=== PATIENT | female | born 1935 | race Caucasian/White ===

== ENCOUNTER → 2018-04-19 | Outpatient (CLI) | payer OTHER | LOC: CAT 12:14 | DX: Z13.6 Encounter for screening for cardiovascular disorders (principal); E78.00 Pure hypercholesterolemia, unspecified; I25.10 Atherosclerotic heart disease of native coronary artery without angina pectoris ==

== ENCOUNTER → 2018-05-15 | Outpatient (CLI) | payer OTHER, MEDICARE | LOC: MRI 14:08 | DX: M51.16 Intervertebral disc disorders with radiculopathy, lumbar region (principal); M48.061 Spinal stenosis, lumbar region without neurogenic claudication; M47.26 Other spondylosis with radiculopathy, lumbar region; N28.1 Cyst of kidney, acquired; I10 Essential (primary) hypertension ==

== ENCOUNTER → 2018-08-21 | Outpatient (CLI) | payer OTHER, MEDICARE ==
[~2018-08-21] VITALS: Ht 160 cm; Wt 68.0 kg
[~2018-08-21] MED LIST: A REDS 2 PO; ASPIR 8181 MG PO; BENICAR40 MG PO; CO Q-10100 MG PO; D3 DOTS2000 UNIT PO; INDAPAMIDE2.5 MG PO; LIPITOR 20 MG T20 M1 PO; MIRAPEX 0.250.25 M1 PO; MIRAPEX0.5 MG PO; TOPROL XL100 MG PO
[2018-08-21 11:02] VITALS: BP 149/71
--- NOTE | 2018-08-21 11:15 | NUR ---
Pain Clinic Assessment: 1. History of Osteoarthritis: History of Rheumatoid Arthritis: 2. Height: 5 ft. 3 in. 160.0 cm. Weight: 150.0 lb. oz. 68.040 kg. Patient's BMI: 26.6 3. Vital Signs: BP: 149/71 Pulse: 94 Resp: 16 Temp: 02 Sat: 99 ECG Mon: 4. Pain Intensity: 5 5. Fall Risk: Dizziness: N Needs help standing or walking: N Fallen in the last 3 months: N Fall risk comments: 6. Patient on Blood Thinner: None 7. History of Hypertension: Y 8. Opioid Therapy greater than 6 weeks: N Opiate Contract Signed: 9. Risk Assessment Tool Provided: LOW 10. Functional Assessment Tool: 11. Recreational Drug Use: Never Drug Type: Tobacco Use: Never Smoker Tobacco Type: Amount or Packs/day: How Many Years: Alcohol Use: No Frequency: Quant:
--- NOTE | 2018-08-28 08:18 | HPC ---
[facility] [address] [place] [address] PAIN MANAGEMENT CONSULTATION Name: JULIENNE MARINO Room #: REG [facility].#: [id number] Admission: 08/21/18 ������������������ Attend Phys: Kal Sharma DO Discharge: ������������������ Date of : 35 Report #: [id number] THIS REPORT FOR: //name// CC: DUSTIN Sharma DATE OF SERVICE: 08/21/2018 CHIEF COMPLAINT: Low back pain. HISTORY OF PRESENT ILLNESS: As you know, the patient is a very pleasant 83-year-old female who began experiencing low back pain somewhere in February 2017. The patient denies specific injury or trauma that may have led to symptom occurrence. She indicates that she has "just been dealing with it" over the past couple of months. She indicates mbmi-cte-dlikytu medications have been ineffective at controlling pain for any long-term period. She sought evaluation through her PCP who trialed conservative treatments with medical management. Unfortunately, her symptoms did not improve and she was subsequently sent for imaging of the lumbar spine. Once the imaging was completed, the patient was referred to our clinic to discuss options for treatment for what appears to be facet arthropathy pain. The patient indicates today pain is continuous, steady and constant, describes the pain as aching and gnawing. She places current pain score at 5/10, daily average of 5/10, worst pain has been as 5/10. She states that pain is exacerbated with standing for any length of time, improves with sitting or lying down. She has been referred to our service to discuss treatment options for facet arthropathy of the lumbar region. PAST MEDICAL HISTORY: 1. Essential hypertension. 2. Irritable bowel syndrome. 3. Dyslipidemia. 4. History of nephrolithiasis. 5. Restless legs syndrome. 6. Venous insufficiency. 7. Bilateral carotid stenosis. 8. Osteopenia. 9. Macular degeneration. 10. Osteoarthritis. 11. Peripheral neuropathy. PAST SURGICAL HISTORY: Lumbar laminectomy in 2014. SOCIAL HISTORY: The patient denies tobacco, alcohol, IV or illicit drug use. [facility] [address] [place] [address] PAIN MANAGEMENT CONSULTATION Name: JULIENNE MARINO Inna Room #: [facility]#: [id number] Admission: 08/21/18 ������������������ Attend Phys: Kal Sharma DO Discharge: ������������������ Date of : 35 Report #: [id number] She retired in 2000, not receiving workmen's compensation nor is she trying to obtain disability benefits. Unaccompanied at today's visit. She is not in litigation in regards to pain. REVIEW OF SYSTEMS: Positive for hearing loss, shortness of breath walking or lying flat, low back pain. All other review of systems negative per 12-point review of systems other than those listed in the history of present illness. Pain impact score 19/70 indicating mild interference of daily activities secondary to pain. ALLERGIES: No known drug allergies. CURRENT MEDICATIONS: Metoprolol 100 mg once a day, olmesartan 40 mg once a day, indapamide 2.5 mg once a day, atorvastatin 20 mg per day, Mirapex 0.5 mg once a day, Coenzyme Q 100 mg once a day, cholecalciferol 2000 units once a day, aspirin 81 mg per day. IMAGING: MRI lumbar spine obtained 05/15/2018 shows L1-L2 generalized disk bulge, moderate posterior facet degenerative changes, no significant central canal stenosis or neural foraminal stenosis. L2-L3, generalized disk bulge with moderate to severe hypertrophic facet degenerative changes and ligamentum flavum hypertrophy, no central canal stenosis, no significant neural foraminal stenosis. L3-L4, generalized disk bulge with severe hypertrophic posterior degenerative changes and ligamentum flavum hypertrophy. Thecal sac is narrowed to 8 mm consistent with moderate central canal stenosis, mild bilateral neural foraminal stenosis. L4-L5, generalized disk bulge, severe hypertrophic facet degenerative changes, thecal sac measuring 8 mm consistent with moderate central canal stenosis, mild left and negative right neural foraminal stenosis. L5-S1, broad-based central and right paracentral disk protrusion slightly larger compared to prior exam abutting the anterior medial aspect of the descending right L5 nerve root, mild central canal stenosis, moderate to severe left neural foraminal narrowing. There is a cyst noted on the posterior cortex of the left kidney. PQRS: The patient has osteoarthritic changes of the lumbar spine. No rheumatoid arthritis, placing pain score at 5/10. She is not a fall risk, has not had a fall in the last 3 months. She is not on blood thinners, but is treated for hypertension. She is not on chronic opioids, but does have a low opioid addiction potential based on our assessment tool. Pain impact score 19/70 indicating mild interference of daily activities secondary to pain. PHYSICAL EXAMINATION: VITAL SIGNS: Blood pressure 149/71, pulse 94, respiratory rate 16 and unlabored. The patient is 99% on room air. Height 5 feet 3 inches tall, weight 150 pounds, BMI calculated 26.6. [facility] [address] [place] [address] PAIN MANAGEMENT CONSULTATION Name: JULIENNE MARINO Room #: REG [facility]#: [id number] Admission: 08/21/18 ������������������ Attend Phys: Kal Sharma DO Discharge: ������������������ Date of : 35 Report #: [id number] GENERAL: Well-developed, well-nourished, well-hydrated 83-year-old female, appears her stated age, placing current pain score at 5/10. HEENT: Normocephalic, atraumatic. Pupils equal, round, reactive to light. Extraocular muscles are intact. Sclerae nonicteric without injection. NEUROLOGIC: Cranial nerves 2-12 grossly intact. Speech is fluent. LUNGS: Clear. No wheeze, rhonchi or rales. CARDIOVASCULAR: Regular. No appreciable gallop, no rub. ABDOMEN: Soft, nontender. EXTREMITIES: Show no clubbing, no cyanosis and no edema. MUSCULOSKELETAL: Lower extremity strength appears symmetrical 5/5, intact to light touch from L1 through S2 dermatomes. Seated straight leg raising negative. Supine straight leg raising negative. Marissa's test negative. Modified Gaenslen's positive for axial low back pain. Ankle clonus negative. Babinski is negative. Lumbar provocation testing including extension, rotation, lateral flexion all intensify axial back pain. Forward flexion of lumbar spine tends to improve pain slightly. ASSESSMENT: 1. 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 2. Facet arthropathy of the lumbar spine. 3. Chronic intractable pain. PLAN: 1. Based on today's physical exam and history the patient has provided, the description the patient uses in regards to pain as well as location of symptoms and the lack of any radicular component to her pain today, the likely source of the patient's pain is facet arthropathy. We discussed with the patient the findings of her MRI. This took over 21 minutes of time. Once we completed the discussion of the findings and how they may correlate the patient's symptoms, the patient and I discussed treatment options, the following was discussed with the patient today on treatment for facet arthropathy pain. We discussed physical therapy, stretching exercises and core strengthening as the gold standard for treatment for facet arthropathy pain. We discussed medication management adding a nonsteroidal anti-inflammatory if the patient can take the medication. We also discussed possibility of adding medication like Cymbalta, which has been indicated beneficial for axial back pain. We discussed facet injections of the lumbar spine to address axial back symptoms. We also discussed medial branch nerve blocks and radiofrequency lesioning as treatment options. We also discussed the final treatment option, which would be surgical. After reviewing the risks and benefits of all the proposed treatment options, the patient wished to remain conservative and begin with physical therapy. 2. The patient was sent for physical therapy twice a week for 6 weeks. We have requested that modalities such as ultrasound, traction and TENS be utilized as necessary. We are requesting strength exercise programs and range of motion exercise programs to assist in pain control. [place] [address] PAIN MANAGEMENT CONSULTATION Name: JULIENNE MARINO Room #: REG [facility]#: [id number] Admission: 08/21/18 ������������������ Attend Phys: Kal Sharma DO Discharge: ������������������ Date of : 35 Report #: [id number] physical therapy as quickly as possible. We will watch for the recommendations from the physical therapist and help address any residual symptoms or requirements of the paperwork with her physical therapist. 3. We made no changes in the patient's medication management. She wishes to remain on current therapy. We did discuss the possibility of adding an anti-inflammatory medication, but at this point, she wishes to delay. 4. We will see the patient back in followup visit once she has completed her physical therapy approximately 6 weeks from now. At that time, we will review the efficacy of this treatment course. I have advised the patient that she is not to discontinue the physical therapy, stretching exercises and techniques. She is to take the information from the formalized program and transition to a home program to continue this activity. I do feel the patient will see good benefit with physical therapy and to continue this will maintain that efficacy. 5. I thank Dr. Jackson for the referral of the patient to our clinic. We will keep you apprised of her response to treatment as we address facet arthropathy pain. Again, we wish to thank you for the opportunity to see the patient in consultation. ��������������������������������������������� <ELECTRONICALLY SIGNED> ���������������������������������������� By: Kal Sharma DO ��������������������������������������������� 08/28/18 0818 1623 0054 Kal Sharma DO /nt
== END ==
LOC: PAIN 10:12
DX: M47.817 Spondylosis without myelopathy or radiculopathy, lumbosacral region (principal); M12.88 Other specific arthropathies, not elsewhere classified, other specified site; G89.29 Other chronic pain; I10 Essential (primary) hypertension; K58.9 Irritable bowel syndrome, unspecified; E78.5 Hyperlipidemia, unspecified; G25.81 Restless legs syndrome; M85.88 Other specified disorders of bone density and structure, other site

== ENCOUNTER → 2018-09-11 | Outpatient (CLI) | payer OTHER, MEDICARE ==
[~2018-09-11] VITALS: Ht 160 cm; Wt 70.4 kg
[2018-09-11 09:27] VITALS: BP 112/58
--- NOTE | 2018-09-11 09:31 | NUR ---
Pain Clinic Assessment: 1. History of Osteoarthritis: History of Rheumatoid Arthritis: 2. Height: 5 ft. 3 in. 160.0 cm. Weight: 155.2 lb. oz. 70.398 kg. Patient's BMI: 27.5 3. Vital Signs: BP: 112/58 Pulse: 79 Resp: 16 Temp: 02 Sat: 99 ECG Mon: 4. Pain Intensity: 3-4 5. Fall Risk: Dizziness: N Needs help standing or walking: N Fallen in the last 3 months: N Fall risk comments: 6. Patient on Blood Thinner: None 7. History of Hypertension: Y 8. Opioid Therapy greater than 6 weeks: N Opiate Contract Signed: 9. Risk Assessment Tool Provided: LOW 10. Functional Assessment Tool: 11. Recreational Drug Use: Never Drug Type: Tobacco Use: Never Smoker Tobacco Type: Amount or Packs/day: How Many Years: Alcohol Use: No Frequency: Quant:
--- NOTE | 2018-09-17 15:47 | HPC ---
[facility] [place] [address] PAIN MANAGEMENT CONSULTATION Name: JULIENNE MARINO Room #: REG [facility].#: [id number] Admission: 09/11/18 Attend Phys: Kal Sharma DO Discharge: Date of : 35 Report #: [id number] THIS REPORT FOR: //name// CC: Tom Gonzalez DATE OF SERVICE: 09/11/2018 CHIEF COMPLAINT: Low back pain. HISTORY OF PRESENT ILLNESS: As you know, the patient is an 83-year-old female who has been experiencing low back pain that began somewhere in 02/2017. Denies any specific injury or trauma that led to occurrence. She indicates that she "just was dealing with it." She continues to experience increasing pain. The patient was evaluated by her PCP ultimately referred to our clinic to discuss options for treatment. We saw the patient on 08/21/2018 where she was diagnosed with lumbosacral spondylosis without radiculopathy and facet arthropathy of the lumbar spine fairly typical for an 83-year-old female. There does not appear to be any lateralizing feature, no radicular component to her symptoms. We sent the patient for physical therapy beginning 2 sessions for 6 weeks. She has 5 sessions remaining and is now reporting improvement in overall pain. She is now indicating pain at its greatest 3-4/10, which is a significant improvement from the previous evaluation where she is reporting pain up to 6/10. She feels the physical therapy is working beneficially for pain control. She returns today to discuss whether to continue this activity or to make further changes in treatment options. She denies new injury, new trauma that may have led to symptom continuation. ALLERGIES: No known drug allergies. CURRENT MEDICATIONS: Metoprolol 100 mg b.i.d., olmesartan 40 mg once a day, indapamide 2.5 mg once a day, atorvastatin 20 mg per day, Mirapex 0.5 mg once a day, Coenzyme Q10 100 mg once a day, cholecalciferol 2000 units once a day, aspirin 81 mg per day. SOCIAL HISTORY: The patient denies tobacco, alcohol, IV or illicit drug use. She retired in 2000, not receiving workmen's compensation. She is accompanied by her significant other. IMAGING: There is no new imaging available. PQRS: The patient has no known osteoarthritic changes of the lumbar spine. No rheumatoid arthritis. She is placing pain today, no greater than 3-4/10. She is not a fall risk, has not had a fall in the last 3 months. She is not on blood thinners. She is treated for hypertension. She is not on opioids and [address] [address] PAIN MANAGEMENT CONSULTATION Name: JULIENNE MARINO Inna Room #: REG [facility]#: [id number] Admission: 09/11/18 Attend Phys: Kal Sharma DO Discharge: Date of : 35 Report #: [id number] does have a low opioid addiction potential based on our addiction assessment tool. Pain impact score 19/70, mild interference of daily activities secondary to pain. PHYSICAL EXAMINATION: VITAL SIGNS: Blood pressure 112/58, pulse 79, respiratory rate 16 and unlabored. The patient is 99% on room air. Height 5 feet 3 inches tall, weight 155.2 pounds, BMI calculated 27.5. GENERAL: Well-developed, well-nourished, well-hydrated 83-year-old female appearing stated age, pain is rated around 3/10. HEENT: Normocephalic, atraumatic. Pupils equal, round, reactive to light. Extraocular muscles are intact. Speech fluent. The patient deemed a fair historian. EXTREMITIES: Show no clubbing, no cyanosis, and no edema. MUSCULOSKELETAL: Lower extremity strength equal and symmetrical 5/5, intact to light touch from L1 through S2 dermatomes. Seated straight leg raising negative. Supine straight leg raising negative. Marissa test negative. Modified Gaenslen's positive for axial low back pain. ASSESSMENT: 1. Symptomatic lumbosacral spondylosis without radiculopathy. 2. Facet arthropathy of the lumbar spine. 3. Chronic intractable pain. PLAN: 1. The patient returns today in followup visit indicating improvement in symptoms with physical therapy. She is now reporting that almost 50% improvement in overall symptoms. She has 5 sessions remaining of her formalized physical therapy program. We have advised the patient that when she completes the formalized portion of the program, she should take what she has learned and continue this at home. The reason the patient is seeing improvement in symptoms is because of the improvement in mobility and exercise routine that she is being taught at physical therapy. If she discontinues this activity upon discharge from the formalized program, her pain will likely return as the arthritic changes that she has in the lumbar spine are not going to resolve. I had a very long discussion with the patient in regards to this today. We cannot reiterate this more completely. If she discontinues this activity, her symptoms will return. It is paramount that the patient continue the physical therapy at home this will maintain good mobility, decrease her overall pain and improve overall stamina and core strengthening. This is the goal standard treatment for facet arthropathy pain. The patient states she understands and will continue this activity. 2. No medication changes made at today's visit. The patient will continue current medical therapy as previously prescribed. 3. Would recommend that if the patient does have recurrence of symptoms, she could be started on a nonsteroidal anti-inflammatory if she can tolerate these [facility] [address] [place] [address] PAIN MANAGEMENT CONSULTATION Name: JULIENNE MARINO Room #: REG [facility]#: [id number] Admission: 09/11/18 Attend Phys: Kal Sharma DO Discharge: Date of : 35 Report #: [id number] medications. Further treatment options could include intra-articular facet injections, medial branch nerve blocks and radiofrequency lesioning though we are hopeful we can avoid more aggressive treatment in this patient's case if she can maintain good and prolonged physical therapy activities. 4. We are pleased to see the patient is doing well. We will be returning the patient's care to her primary care physician, Dr. Tom Jackson, but we will be available to see her back in followup visit if interventional treatments are necessary. <ELECTRONICALLY SIGNED> By: Kal Sharma DO 09/17/18 1547 0810 0143 Kal Sharma DO /nt
== END ==
LOC: PAIN 06:49
DX: M47.817 Spondylosis without myelopathy or radiculopathy, lumbosacral region (principal); M12.88 Other specific arthropathies, not elsewhere classified, other specified site; G89.4 Chronic pain syndrome; Z79.899 Other long term (current) drug therapy

== ENCOUNTER → 2019-05-14 | Outpatient (CLI) | payer OTHER, MEDICARE | LOC: SJCVC 12:05 | DX: R93.1 Abnormal findings on diagnostic imaging of heart and coronary circulation (principal); E78.00 Pure hypercholesterolemia, unspecified; I10 Essential (primary) hypertension; I65.23 Occlusion and stenosis of bilateral carotid arteries ==

== ENCOUNTER → 2019-08-20 | Outpatient (CLI) | payer OTHER, MEDICARE | LOC: MRI 09:24 → EDSTATUS 15:47 → MRI 15:48 | PROVIDERS: ATTEND Internal Medicine | DX: M47.27 Other spondylosis with radiculopathy, lumbosacral region (principal); M51.15 Intervertebral disc disorders with radiculopathy, thoracolumbar region; M25.78 Osteophyte, vertebrae; M48.061 Spinal stenosis, lumbar region without neurogenic claudication; M51.27 Other intervertebral disc displacement, lumbosacral region ==

== ENCOUNTER → 2019-08-28 | Outpatient (CLI) | payer OTHER, MEDICARE ==
[~2019-08-28] VITALS: Ht 160 cm; Wt 70.1 kg
--- NOTE | ~2019-08-28 | HPC ---
[facility] [place] [address] PAIN MANAGEMENT CONSULTATION Name: JULIENNE MARINO Room #: REG [facility].#: [id number] Admission: 08/28/19 Attend Phys: Olegario Moss MD Discharge: Date of : 35 Report #: [id number] THIS REPORT FOR: cc: Tom Jackson Donald L. DO Morgan, Richard L. MD ~ CC: Tom Hicks DATE OF SERVICE: 08/28/2019 CHIEF COMPLAINT: Severe low back pain with radiation to the left in the upper lumbar dermatomal distributions of L2, L3 and into the hip. No leg pain. HISTORY OF PRESENT ILLNESS: The patient is a pleasant 84-year-old who is here today at the request of Dr. Tom Jackson for an epidural injection. She has been complaining of increasing intensity of low back pain with radiation to the left. She scores her pain intensity today as a 6/10. She says it hurts when she moves her leg. The pain is in her low back, but it is above the level where she has had prior surgery and it radiates. She has a slight dextrorotational scoliosis by palpation. She has an MRI available, which I reviewed and it is consistent with degenerative changes associated with age. She has a slight curvature with the apex at L4. There is degenerative disk change throughout with prominent degenerative changes at L5-S1. There is spondylosis present with diffuse facet degenerative changes throughout bilaterally from L1-L2 through L5-S1. There are also posterior disk bulges. It should be noted that there is neural foraminal stenosis as well bilaterally and it varies from level to level, whether it is worse right than the left. She does have bilateral neural foraminal stenosis. A paracentral disk protrusion is present at L5-S1; ____ right S1 nerve root, she has no symptoms on that side. She has mild spinal stenosis to moderate spinal stenosis at several levels. MEDICATIONS: Tylenol for pain, metoprolol, indapamide, olmesartan, atorvastatin, Mirapex, CoQ10, cholecalciferol. ALLERGIES: None. PAST MEDICAL HISTORY: Remarkable for hypertension. She sees Dr. Jorgito Mooney. It sounds as though she had an elevated calcium score. SOCIAL HISTORY: She is retired as of 2000. She denies use of tobacco or alcohol. Pain impact score is 27/70, showing fairly reasonable management of pain with day-to-day activities. She did complete an opioid risk tool and her [facility] [address] [place] [address] PAIN MANAGEMENT CONSULTATION Name: JULIENNE MARINO Room #: REG [facility]#: [id number] Admission: 08/28/19 Attend Phys: Olegario Moss MD Discharge: Date of : 35 Report #: [id number] score was 0. She is on no opioid medications. She has had no falls in the last 3 months. She is active in her day-to-day activities. PHYSICAL EXAMINATION: GENERAL: She is 5 feet 3 inches, BMI of 27.4, blood pressure 111/48, heart rate 80, respirations 14, O2 sat is 98. HEENT: Reveals normal pupils; equal, round, reactive to light. EOMs are intact. NECK: Supple. CHEST: Clear to auscultation. CARDIAC: Regular rhythm without murmur. MUSCULOSKELETAL: Tenderness across the lumbosacral segment, slight dextrorotation is noted in the upper lumbar region. She has prominent paravertebral musculature with tenderness suggesting some muscle spasm. She has no pain whatsoever with lumbar flexion, extension, rotation, and ulug-cf-[id number] tilt. Straight leg raising on the left reproduces pain, but it is mostly high in the back and radiates into the iliac crest region, not into the leg. She denies numbness, tingling or weakness. IMPRESSION: Severe lumbar spondylosis with radiculopathy today of the upper lumbar reaches. She also has x-ray evidence of spondylosis, but her physical exam does not demonstrate back pain. RECOMMENDATION: I agree with Dr. Jackson, an epidural injection would be a reasonable place to provide treatment. Injection will be at L3-L4. Potential benefits and risks and the procedure were explained in detail to the patient. She is anxious to proceed. PROCEDURE: Epidural injection, left paramedian L3-L4 under fluoroscopic guidance. DESCRIPTION OF PROCEDURE: After informed consent, she was taken to fluoroscopic suite, placed prone, skin prepped with ChloraPrep. Skin anesthetized over the L3-L4 interspace to the left of midline. A 20-gauge Tuohy epidural needle advanced in the epidural space with loss of resistance technique on the first attempt. There was no blood nor CSF aspirated. A 0.25 mL of Omnipaque was injected and excellent epidurogram achieved. Most of the medication spreading left into the lateral recess. It was then followed by 3 mL of 0.5% lidocaine mixed with 80 mg of triamcinolone. She tolerated the procedure well. There were no complications. She was taken to recovery room for observation and discharged. Followup visit planned in 1 month. Further injections will depend solely on her response and if she sees favorable improvement with these injections, we can [facility] [address] [place] [address] PAIN MANAGEMENT CONSULTATION Name: JULIENNE MARINO Room #: REG [facility].#: [id number] Admission: 08/28/19 Attend Phys: Olegario Moss MD Discharge: Date of : 35 Report #: [id number] consider them as a possible treatment going forward as long as we do not over utilize technique and the procedure. By: [id number] Olegario Moss MD /nt
[2019-08-28 08:57] VITALS: BP 111/48
--- NOTE | 2019-08-28 09:11 | NUR ---
Pain Clinic Assessment: 1. History of Osteoarthritis: BACK History of Rheumatoid Arthritis: Not Applicable 2. Height: 5 ft. 3 in. 160.0 cm. Weight: 154.6 lb. oz. 70.126 kg. Patient's BMI: 27.4 3. Vital Signs: BP: 111/48 Pulse: 80 Resp: 14 Temp: 02 Sat: 98 ECG Mon: 4. Pain Intensity: 6 5. Fall Risk: Dizziness: N Needs help standing or walking: N Fallen in the last 3 months: N Fall risk comments: 6. Patient on Blood Thinner: None 7. History of Hypertension: Y 8. Opioid Therapy greater than 6 weeks: N Opiate Contract Signed: 9. Risk Assessment Tool Provided: LOW RISK 0/3 10. Functional Assessment Tool: 11. Recreational Drug Use: Never Drug Type: Tobacco Use: Never Smoker Tobacco Type: Amount or Packs/day: How Many Years: Alcohol Use: No Frequency: Quant:
== END | disposition home or self-care (01) ==
LOC: PAIN 06:55
PROVIDERS: ATTEND Anesthesiology Pain Medicine
DX: M51.16 Intervertebral disc disorders with radiculopathy, lumbar region (principal); M47.26 Other spondylosis with radiculopathy, lumbar region; M48.061 Spinal stenosis, lumbar region without neurogenic claudication; G89.29 Other chronic pain; I10 Essential (primary) hypertension; Z79.899 Other long term (current) drug therapy

== ENCOUNTER → 2019-09-25 | Outpatient (CLI) | payer OTHER, MEDICARE ==
[~2019-09-25] VITALS: Ht 160 cm; Wt 68.9 kg
--- NOTE | ~2019-09-25 | HPC ---
[facility] [place] [address] PAIN MANAGEMENT CONSULTATION Name: JULIENNE MARINO Room #: REG SOLOMON Carolyn.#: [id number] Admission: 09/25/19 Attend Phys: Olegario Moss MD Discharge: Date of : 35 Report #: [id number] THIS REPORT FOR: cc: Tom Jackson Donald L. DO Morgan, Richard L. MD ~ CC: Tom Hicks DATE OF SERVICE: 09/25/2019 Followup visit for pain in the left hip. The patient returns to pain clinic today after an epidural injection. I consulted with Dr. 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 She did not have extended pain into the leg. On her MRI, she had at L2-L3, a broad-based protrusion abutting the anterior thecal sac with the taper of the canal to 1 cm. There was some extension of the disk causing a moderate right and mild left foraminal stenosis. There was also some stenosis located below. Degenerative disk disease was noted with endplate changes at L5-S1. Response was not dramatic. She had some temporary relief from the local anesthetic, but pain then returned to baseline fairly quickly. Today on reexamination, her pain is extremely well localized in the gluteus region without radicular symptoms. Medications were reviewed and reconciled. There are no specific changes. PQRS REVIEW: Positive for a history of some spondylosis. BMI 26.9, blood pressure 115/53, heart rate 93, respirations 14, pain intensity 8. No falls recently. No blood thinners, but she has a history of hypertension, which is treated by Dr. Jackson. All medications reviewed and reconciled. If she does not take pain medications, would be considered at low risk, we will need to assume prescribing a few of them to her for severe pain and I think could be done safely. Her functional assessment score is 27 suggesting that she continues to move about and be active. She denies use of tobacco and alcohol. PHYSICAL EXAMINATION: VITAL SIGNS: As noted. GENERAL: She is able to easily move from an independent sitting to standing position and ambulates only with mild antalgic features. There is tenderness located in the gluteal muscle today, but not much across the low back as it was earlier. There is not much radiating pain today from the area just below the [facility] [place] [place] [address] [place] [address] PAIN MANAGEMENT CONSULTATION Name: JULIENNE MARINO Room #: REG CLI [facility]#: [id number] Admission: 09/25/19 Attend Phys: Olegario Moss MD Discharge: Date of : 35 Report #: [id number] iliac crest posteriorly in the region of the gluteus gavi and gluteus medius muscle. IMPRESSION: Gluteus myofascial pain without radiation. Her pain has changed slightly since her epidural injection does seem more localized. RECOMMENDATIONS: I have recommended that we try trigger point injection today and see if we can provide some relief. If this is myofascial pain, she should be able to work it out with some exercise. I do not see other treatment is necessary at this time. PROCEDURE: Trigger point injection gluteus gavi and gluteus medius muscle. Skin prepped with ChloraPrep and a 25-gauge needle and used to infiltrate shallow and total of 5 mL of 1% lidocaine mixed with 40 mg of triamcinolone in a fan shaped distribution through the muscles deep and shallow. She tolerated the injections well. There were no complications. She was observed for a short time and discharged with a followup visit planned in 1 month. By: [id number] Olegario Moss MD /nt
--- NOTE | ~2019-09-25 | HPC ---
[facility] [place] [address] PAIN MANAGEMENT CONSULTATION Name: JULIENNE MARINO Room #: REG SOLOMON ..#: [id number] Admission: 09/25/19 Attend Phys: Olegario Moss MD Discharge: Date of : 35 Report #: [id number] THIS REPORT FOR: cc: Tom Jackson,Tom Singh,Olegario Richmond MD ~ CC: Tom Moss DATE OF SERVICE: 09/25/2019 CORRECTION NOTE I am calling in for the second time on the patient to have you please change the date on her dictation and the medical record number if necessary. So, I saw her on 09/25/2019 and the dictation was done, but I have two dictations on the record for 08/28/2019. The more recent dictation was done on the date of 09/25/2019 when she was seen and so I just like you to change the number. The patient, [id number], date of registration 09/25/2019 and her unit number is [id number] and as I look at the dictation at the top on my everything, it shows that I dictated this report on 09/25/2019. I just need you to change the date on the top where it says admission date to an admission date of 09/25/2019 instead of 08/28/2019. For you guys that is report number [id number]. It also has underneath there the number [id number], so again if you could please change that for me, I would greatly appreciate it. By: [id number] Olegario Moss MD /nt
[2019-09-25 09:24] VITALS: BP 115/53
--- NOTE | 2019-09-25 09:39 | NUR ---
Pain Clinic Assessment: 1. History of Osteoarthritis: BACK History of Rheumatoid Arthritis: Not Applicable 2. Height: 5 ft. 3 in. 160.0 cm. Weight: 151.8 lb. oz. 68.856 kg. Patient's BMI: 26.9 3. Vital Signs: BP: 115/53 Pulse: 93 Resp: 14 Temp: 02 Sat: 99 ECG Mon: 4. Pain Intensity: 8 5. Fall Risk: Dizziness: N Needs help standing or walking: N Fallen in the last 3 months: N Fall risk comments: 6. Patient on Blood Thinner: None 7. History of Hypertension: Y 8. Opioid Therapy greater than 6 weeks: N Opiate Contract Signed: 9. Risk Assessment Tool Provided: LOW RISK 0/3 10. Functional Assessment Tool: 11. Recreational Drug Use: Never Drug Type: Tobacco Use: Never Smoker Tobacco Type: Amount or Packs/day: How Many Years: Alcohol Use: No Frequency: Quant:
== END | disposition home or self-care (01) ==
LOC: PAIN 06:50
PROVIDERS: ATTEND Anesthesiology Pain Medicine
DX: M79.18 Myalgia, other site (principal); I10 Essential (primary) hypertension; Z98.890 Other specified postprocedural states; Z79.899 Other long term (current) drug therapy

== ENCOUNTER → 2019-12-15 | Outpatient (CLI) | payer OTHER, MEDICARE | LOC: SJCVCIMAG 07:50 | PROVIDERS: ATTEND Internal Medicine Cardiovascular Disease | DX: I25.10 Atherosclerotic heart disease of native coronary artery without angina pectoris (principal); I10 Essential (primary) hypertension; E78.5 Hyperlipidemia, unspecified; Z79.899 Other long term (current) drug therapy ==

== ENCOUNTER → 2020-06-30 | Outpatient (CLI) | payer OTHER, MEDICARE | LOC: SJCVC 14:35 | PROVIDERS: ATTEND Internal Medicine Cardiovascular Disease | DX: R93.1 Abnormal findings on diagnostic imaging of heart and coronary circulation (principal); I10 Essential (primary) hypertension; E78.00 Pure hypercholesterolemia, unspecified; I65.23 Occlusion and stenosis of bilateral carotid arteries; Z79.82 Long term (current) use of aspirin; Z79.899 Other long term (current) drug therapy ==

== ENCOUNTER → 2021-03-17 | Outpatient (CLI) | payer OTHER, MEDICARE | LOC: SJCVC 10:20 | PROVIDERS: ATTEND Internal Medicine Cardiovascular Disease | DX: R93.1 Abnormal findings on diagnostic imaging of heart and coronary circulation (principal); I10 Essential (primary) hypertension; E78.00 Pure hypercholesterolemia, unspecified; I65.23 Occlusion and stenosis of bilateral carotid arteries; Z98.890 Other specified postprocedural states; Z79.82 Long term (current) use of aspirin; Z79.899 Other long term (current) drug therapy ==